=== PATIENT | female | born 1945 | race Caucasian/White ===

== ENCOUNTER 2019-04-04 14:29 | Emergency (ER) | payer MEDICARE, BC ==
[~2019-04-04] VITALS: Ht 152.4 cm; Wt 86.4 kg
[~2019-04-04 14:29] MED LIST: ACET-1008 PO; ASPI-611 PO; AZIL40TA PO; CHOL200059 PO; CLOP75TA15 PO; GLUC-221 PO; GLYB1TAB39 PO; GLYB2.5T4 PO; LEVO150T PO; MAGN400C PO; METF500T PO; METO25TA6 PO; MULT1TAB74 PO; OMEG1CAP13 PO; PANT-47 PO; POTA99TA25 PO; PSYL0.5210 PO; VITC500T PO
[2019-04-04 15:48] LABS: BASOPHILS # (AUTO) 0.1 X10'3 (0-0.2); BASOPHILS % (AUTO) 0.8 % (0-1); EOSINOPHILS # (AUTO) 0.3 X10'3 (0-0.9); EOSINOPHILS % (AUTO) 2.4 % (0-6); HEMATOCRIT 44.4 % (35.0-45.0); HEMOGLOBIN 15.2 g/dl (12.0-16.0); LYMPHOCYTES # (AUTO) 2.1 X10'3 (1.1-4.8); LYMPHOCYTES % (AUTO) 19.9 % (21-51); MEAN CORPUSCULAR HGB CONC 34.2 g/dL (33.0-36.5); MEAN CORPUSCULAR VOLUME 93.7 FL (78-98); MEAN PLATELET VOLUME 6.7 FL (7.4-10.4); MONOCYTES # (AUTO) 0.9 X10'3 (0-0.9); MONOCYTES % (AUTO) 8.5 % (2-12); NEUTROPHILS # (AUTO) 7.2 X10'3 (1.8-7.7); NEUTROPHILS % (AUTO) 68.4 % (42-75); PLATELET COUNT 318 X10'3 (140-440); RED BLOOD COUNT 4.74 X10'6 (4.20-5.60); RED CELL DISTRIBUTION WIDTH 13.3 % (11.5-14.5); WHITE BLOOD COUNT 10.5 X10'3 (4.5-11.0)
[2019-04-04 16:02] LABS: ALANINE AMINOTRANSFERASE 29 U/L (12-78); ALBUMIN 3.8 G/DL (3.4-5.0); ALKALINE PHOSPHATASE 93 IU/L (46-116); ANION GAP 10 (8-16); ASPARTATE AMINO TRANSFERASE 20 U/L (10-37); BILIRUBIN,TOTAL 0.3 MG/DL (0.1-1.0); BLOOD UREA NITROGEN 16 MG/DL (7-18); BUN/CREATININE RATIO 10.4 (6.6-38.0); CALCIUM 9.5 MG/DL (8.5-10.1); CHLORIDE 103 MMOL/L (99-107); CREATININE 1.54 MG/DL (0.40-0.90); GLUCOSE 189 MG/DL (70-104); POTASSIUM 4.1 MMOL/L (3.5-5.1); SODIUM 140 MMOL/L (135-145); TOTAL PROTEIN 7.6 G/DL (6.4-8.2); eGFR 33 ML/MIN
[2019-04-04 18:34] VITALS: BP 143/71
== END 2019-04-04 19:24 | disposition home or self-care (01) ==
LOC: ER 14:30
DX: I10 Essential (primary) hypertension (principal); I25.10 Atherosclerotic heart disease of native coronary artery without angina pectoris; K21.9 Gastro-esophageal reflux disease without esophagitis; E11.9 Type 2 diabetes mellitus without complications; Z98.61 Coronary angioplasty status; Z98.890 Other specified postprocedural states; Z88.0 Allergy status to penicillin; Z88.8 Allergy status to other drugs, medicaments and biological substances; Z79.82 Long term (current) use of aspirin; Z79.84 Long term (current) use of oral hypoglycemic drugs; Z79.899 Other long term (current) drug therapy
CPT/HCPCS: 36415; 71045; 80053; 84484; 85025; 93005; 99284

== ENCOUNTER 2019-10-07 12:09 | Day surgery (SDC) | payer MEDICARE, BC ==
[~2019-10-07] VITALS: Ht 152.4 cm; Wt 92.8 kg
[2019-10-07] VITALS (8 sets, daily range): BP systolic 150–175; BP diastolic 88–100
[~2019-10-07 12:09] MED LIST changes: +MULT-620 PO; -MULT1TAB74 PO
[2019-10-07] MEDS ORDERED: diphenhydrAMINE 25mg capsule PO PRN (12:35)
[2019-10-07] MEDS ORDERED: normal saline 1,000 ML IV SCH (12:35)
[2019-10-07] MEDS ORDERED: FURO-150 PO (13:04)
[2019-10-07] MEDS ORDERED: POTA10TA19 PO (13:04)
[2019-10-07] MEDS ORDERED: GLYB2.5T4 PO (13:04)
[2019-10-07] MEDS ORDERED: VALS160T30 PO (13:04)
[2019-10-07] MEDS ORDERED: GABA-530 PO (13:04)
[2019-10-07] MEDS ORDERED: NEBI10TA2 PO (13:04)
[2019-10-07] MEDS ORDERED: GLIM4TAB7 PO (13:04)
[2019-10-07] MEDS ORDERED: GLYB1TAB39 PO (13:13)
[2019-10-07 13:20] LABS: BASOPHILS # (AUTO) 0.1 X10'3 (0-0.2); BASOPHILS % (AUTO) 1.1 % (0-1); EOSINOPHILS # (AUTO) 0.3 X10'3 (0-0.9); EOSINOPHILS % (AUTO) 3.2 % (0-6); HEMATOCRIT 42.7 % (35.0-45.0); HEMOGLOBIN 14.6 g/dl (12.0-16.0); LYMPHOCYTES # (AUTO) 1.6 X10'3 (1.1-4.8); LYMPHOCYTES % (AUTO) 20.6 % (21-51); MEAN CORPUSCULAR HEMOGLOBIN 32.4 PG (27.0-31.0); MEAN CORPUSCULAR HGB CONC 34.1 g/dL (33.0-36.5); MEAN CORPUSCULAR VOLUME 94.8 FL (78-98); MEAN PLATELET VOLUME 7.3 FL (7.4-10.4); MONOCYTES # (AUTO) 0.7 X10'3 (0-0.9); MONOCYTES % (AUTO) 8.4 % (2-12); NEUTROPHILS # (AUTO) 5.3 X10'3 (1.8-7.7); NEUTROPHILS % (AUTO) 66.7 % (42-75); PLATELET COUNT 253 X10'3 (140-440)
[2019-10-07 13:25] LABS: ALBUMIN 3.3 G/DL (3.4-5.0); ANION GAP 12 (8-16); BLOOD UREA NITROGEN 17 MG/DL (7-18); BUN/CREATININE RATIO 11.3 (6.6-38.0); CHLORIDE 102 MMOL/L (99-107); CREATININE 1.51 MG/DL (0.40-0.90); GLUCOSE 231 MG/DL (70-104); MAGNESIUM 1.7 MG/DL (1.5-2.4); POTASSIUM 4.4 MMOL/L (3.5-5.1); SODIUM 139 MMOL/L (135-145); eGFR 34 ML/MIN
[2019-10-07] MEDS ORDERED: diphenhydrAMINE 25mg capsule PO ONE (13:44)
[2019-10-07] MEDS ORDERED: sodium bicarbonate (8.4%) inj. 150 ML in dextrose 5%-water 1,000 ML IV ONE (13:45)
[2019-10-07] MEDS ORDERED: LIDOcaine 1% (10mg/ml)w/preservative injection 20ml MDV ONE (14:45)
[2019-10-07] MEDS ORDERED: iohexol 350 MG/ML 50ML vial IV ONE (14:46)
[2019-10-07] MEDS ORDERED: iohexol 350MG/ML 100ml bottle IV ONE ×3 (14:46→16:25)
[2019-10-07] MEDS ORDERED: heparin 1,000unit/ml 10ml vial 10 ML ONE ×2 (14:46→16:25)
[2019-10-07] MEDS ORDERED: midazolam 2 mg/2 ml injection ONE ×3 (15:12→16:05)
[2019-10-07] MEDS ORDERED: fentaNYL/PF 50MCG/1 ML 2ML syringe ONE ×2 (15:13→16:27)
[2019-10-07] MEDS ORDERED: clopidogrel 300mg tablet ONE (15:48)
[2019-10-07] MEDS ORDERED: nitroGLYCERIN-Tridil 50MG/D5W 250 ML IV ONE (16:06)
[2019-10-07] MEDS ORDERED: proCHLORperazine 10 MG/2 ml inj ONE (16:14)
--- NOTE | 2019-10-07 17:33 | NUR ---
Pt complaining of "burning throat" & requesting Pepcid. Dr. Kwon telephoned, order received.
[2019-10-07] MEDS ORDERED: normal saline 1000ml 1,000 ML IV SCH (17:35)
[2019-10-07] MEDS ORDERED: OXAZEpam 15mg capsule PO PRN (17:35)
[2019-10-07] MEDS ORDERED: famotidine 10mg tablet PO ONE (17:35)
[2019-10-07] MEDS ORDERED: HYDROcodone/acetaminophen 5mg/325mg tablet PO PRN (17:35)
[2019-10-07] MEDS ORDERED: HYDROcodone/acetaminophen 10/325mg tab PO PRN (17:35)
== END 2019-10-07 20:10 | disposition home or self-care (01) ==
LOC: SSTAY O 12:09
PROVIDERS: ATTEND Internal Medicine Cardiovascular Disease
DX: R06.09 Other forms of dyspnea (principal); R07.89 Other chest pain; I25.118 Atherosclerotic heart disease of native coronary artery with other forms of angina pectoris; I10 Essential (primary) hypertension; E78.5 Hyperlipidemia, unspecified; E03.9 Hypothyroidism, unspecified; E11.42 Type 2 diabetes mellitus with diabetic polyneuropathy; G62.0 Drug-induced polyneuropathy; Z85.3 Personal history of malignant neoplasm of breast; Z85.42 Personal history of malignant neoplasm of other parts of uterus; Z95.5 Presence of coronary angioplasty implant and graft; Z90.710 Acquired absence of both cervix and uterus; Z98.890 Other specified postprocedural states; Z96.659 Presence of unspecified artificial knee joint; Z87.891 Personal history of nicotine dependence; Z88.8 Allergy status to other drugs, medicaments and biological substances; Z91.013 Allergy to seafood; Z82.49 Family history of ischemic heart disease and other diseases of the circulatory system; Z80.1 Family history of malignant neoplasm of trachea, bronchus and lung
CPT/HCPCS: 36415; 80048; 82948; 83735; 85025; 85610; 93005; 93458; 99152; 99153; C1725; C1751; C1760; C1769; C1874; C1894; C9600; J0780; J1644; J2001; J2250; J3010; Q0163; Q9967; A4620; A6258; J3490

== ENCOUNTER 2021-12-02 12:15 | Outpatient (CLI) | payer MEDICARE, BC ==
[~2021-12-02 12:15] MED LIST changes: -ACET-1008 PO; +ALLO100T PO; +AMLO5TAB16 PO; -ASPI-611 PO; +ASPI81TA53 PO; +ATOR40TA72 PO; -AZIL40TA PO; -CHOL200059 PO; -CLOP75TA15 PO; +FURO-150 PO; +GABA300C PO; -GLUC-221 PO; -GLYB1TAB39 PO; -GLYB2.5T4 PO; +INSU100I25 SQ; +INSU100I8 SQ; +LEVO125T PO; -LEVO150T PO; +LOP12.5T PO; -MAGN400C PO; -METF500T PO; -METO25TA6 PO; -MULT-620 PO; -OMEG1CAP13 PO; -POTA99TA25 PO; -PSYL0.5210 PO; +VALS160T30 PO; -VITC500T PO
== END 2021-12-02 23:59 | disposition home or self-care (01) ==
LOC: RAD 12:15
PROVIDERS: ATTEND Thoracic Surgery (Cardiothoracic Vascular Surgery)
DX: J18.9 Pneumonia, unspecified organism (principal); R09.3 Abnormal sputum; M40.294 Other kyphosis, thoracic region; Z95.1 Presence of aortocoronary bypass graft
CPT/HCPCS: 71046

== ENCOUNTER 2021-12-05 17:39 | Emergency (ER) | payer MEDICARE, BC ==
[~2021-12-05] VITALS: Ht 152.4 cm; Wt 92.7 kg
[2021-12-05 17:51] VITALS: BP 118/69
[2021-12-05 18:22] LABS: BASOPHILS # (AUTO) 0.1 X10'3 (0-0.2); EOSINOPHILS # (AUTO) 0.7 X10'3 (0-0.9); EOSINOPHILS % (AUTO) 7.7 % (0-6); HEMATOCRIT 36.6 % (35.0-45.0); HEMOGLOBIN 12.1 g/dl (12.0-16.0); LYMPHOCYTES # (AUTO) 2.1 X10'3 (1.1-4.8); MEAN CORPUSCULAR HEMOGLOBIN 32.2 PG (27.0-31.0); MEAN CORPUSCULAR HGB CONC 33.2 g/dL (33.0-36.5); MEAN CORPUSCULAR VOLUME 97.1 FL (78-98); MONOCYTES # (AUTO) 0.8 X10'3 (0-0.9); MONOCYTES % (AUTO) 8.8 % (2-12); NEUTROPHILS # (AUTO) 4.9 X10'3 (1.8-7.7); NEUTROPHILS % (AUTO) 57.5 % (42-75); PLATELET COUNT 367 X10'3 (140-440); RED BLOOD COUNT 3.77 X10'6 (4.20-5.60); RED CELL DISTRIBUTION WIDTH 15.3 % (11.5-14.5); WHITE BLOOD COUNT 8.6 X10'3 (4.5-11.0)
[2021-12-05 18:41] LABS: ALANINE AMINOTRANSFERASE 15 U/L (12-78); ALBUMIN 3.5 G/DL (3.4-5.0); ALBUMIN/GLOBULIN RATIO 0.9 (1.1-1.5); ALKALINE PHOSPHATASE 161 IU/L (46-116); ANION GAP 16 (8-16); ASPARTATE AMINO TRANSFERASE 18 U/L (10-37); BILIRUBIN,TOTAL 0.3 MG/DL (0.1-1.0); BLOOD UREA NITROGEN 15 MG/DL (7-18); BUN/CREATININE RATIO 7.6 (6.6-38.0); CALCIUM 9.6 MG/DL (8.5-10.1); CHLORIDE 103 MMOL/L (99-107); CREATININE 1.97 MG/DL (0.40-0.90); GLUCOSE 89 MG/DL (70-104); POTASSIUM 4.7 MMOL/L (3.5-5.1); SODIUM 144 MMOL/L (135-145); TOTAL CARBON DIOXIDE 25.5 MMOL/L (24-32); TOTAL PROTEIN 7.2 G/DL (6.4-8.2); eGFR 25 ML/MIN
[2021-12-05 20:36] LABS: GLUCOSE 77 MG/DL (70-104)
--- NOTE | 2021-12-05 20:58 | NUR ---
food tray provided
== END 2021-12-05 21:16 | disposition home or self-care (01) ==
LOC: ER 17:40
DX: R00.0 Tachycardia, unspecified (principal); R06.02 Shortness of breath; I25.10 Atherosclerotic heart disease of native coronary artery without angina pectoris; I10 Essential (primary) hypertension; K21.9 Gastro-esophageal reflux disease without esophagitis; E11.9 Type 2 diabetes mellitus without complications; Z98.890 Other specified postprocedural states; Z88.0 Allergy status to penicillin; Z88.8 Allergy status to other drugs, medicaments and biological substances; Z91.013 Allergy to seafood; Z79.82 Long term (current) use of aspirin; Z79.4 Long term (current) use of insulin; Z79.899 Other long term (current) drug therapy
CPT/HCPCS: 36415; 71046; 80053; 82947; 83735; 83880; 84484; 85025; 93005; 99285

== ENCOUNTER 2022-04-01 07:16 | Day surgery (SDC) | payer MEDICARE, BC ==
[2022-04-01] VITALS (9 sets, daily range): BP systolic 98–132; BP diastolic 49–108
[~2022-04-01] VITALS: Ht 152.4 cm; Wt 89.9 kg
[2022-04-01] MEDS ORDERED: vancomycin 1,500 MG in NS 300ml IV soln IV ONE (07:43)
[2022-04-01] MEDS ORDERED: clindamycin-Cleocin 900mg/D5W 50 ML IV ONE (07:43)
[2022-04-01] MEDS ORDERED: normal saline 1000ml 1,000 ML IV SCH ×2 (07:43→12:59)
[2022-04-01] MEDS ORDERED: MAGN200T PO (08:14)
[2022-04-01] MEDS ORDERED: ASPI81TA52 PO (08:14)
[2022-04-01] MEDS ORDERED: VITAMIN D3 PO (08:14)
[2022-04-01] MEDS ORDERED: SULF1TAB45 PO (08:20)
[2022-04-01 08:57] LABS: BASOPHILS # (AUTO) 0.1 X10'3 (0-0.2); BASOPHILS % (AUTO) 0.9 % (0-1); EOSINOPHILS # (AUTO) 0.2 X10'3 (0-0.9); EOSINOPHILS % (AUTO) 2.4 % (0-6); HEMATOCRIT 37.7 % (35.0-45.0); HEMOGLOBIN 12.6 g/dl (12.0-16.0); LYMPHOCYTES # (AUTO) 1.2 X10'3 (1.1-4.8); LYMPHOCYTES % (AUTO) 16.5 % (21-51); MEAN CORPUSCULAR HEMOGLOBIN 31.2 PG (27.0-31.0); MEAN CORPUSCULAR HGB CONC 33.4 g/dL (33.0-36.5); MEAN CORPUSCULAR VOLUME 93.1 FL (78-98); MEAN PLATELET VOLUME 6.5 FL (7.4-10.4); MONOCYTES # (AUTO) 0.5 X10'3 (0-0.9); MONOCYTES % (AUTO) 7.2 % (2-12); NEUTROPHILS # (AUTO) 5.1 X10'3 (1.8-7.7); PLATELET COUNT 257 X10'3 (140-440); RED BLOOD COUNT 4.05 X10'6 (4.20-5.60); RED CELL DISTRIBUTION WIDTH 17.1 % (11.5-14.5)
[2022-04-01 09:19] LABS: ALBUMIN 3.4 G/DL (3.4-5.0); ANION GAP 10 (8-16); BLOOD UREA NITROGEN 19 MG/DL (7-18); BUN/CREATININE RATIO 9.9 (6.6-38.0); CALCIUM 9.3 MG/DL (8.5-10.1); CHLORIDE 103 MMOL/L (99-107); CREATININE 1.92 MG/DL (0.40-0.90); GLUCOSE 100 MG/DL (70-104); MAGNESIUM 2.1 MG/DL (1.5-2.4); POTASSIUM 4.4 MMOL/L (3.5-5.1); SODIUM 137 MMOL/L (135-145); TOTAL CARBON DIOXIDE 24.2 MMOL/L (24-32); eGFR 25 ML/MIN
[2022-04-01] MEDS ORDERED: fentaNYL/PF 50MCG/1 ML 2ML syringe ONE (10:27)
[2022-04-01] MEDS ORDERED: midazolam 1 mg/ML 2ml injection ONE (10:27)
[2022-04-01] MEDS ORDERED: ceFAZolin 1000mg inj ONE (10:27)
[2022-04-01] MEDS ORDERED: LIDOCAINE 2%/EPI 1:100,000 inj. Multi-dose 20 ML VIAL ONE ×2 (10:29→11:51)
[2022-04-01] MEDS ORDERED: vancomycin 1,000mg inj ONE (10:34)
[2022-04-01] MEDS ORDERED: diphenhydrAMINE 50 mg/ml inj ONE (11:24)
[2022-04-01] MEDS ORDERED: iohexol 350 MG/ML 50ML vial IV ONE (11:40)
[2022-04-01] MEDS ORDERED: metoprolol tartrate 1mg/ml inj IV ONE (12:16)
[2022-04-01] MEDS ORDERED: normal saline 1000ml 400 ML IV SCH (13:00)
== END 2022-04-01 15:20 | disposition home or self-care (01) ==
LOC: SSTAY O 07:16
PROVIDERS: ATTEND Internal Medicine Cardiovascular Disease
DX: I49.5 Sick sinus syndrome (principal); I44.2 Atrioventricular block, complete; I47.1 Supraventricular tachycardia; I25.118 Atherosclerotic heart disease of native coronary artery with other forms of angina pectoris; I10 Essential (primary) hypertension; E78.5 Hyperlipidemia, unspecified; E11.42 Type 2 diabetes mellitus with diabetic polyneuropathy; E03.9 Hypothyroidism, unspecified; E11.22 Type 2 diabetes mellitus with diabetic chronic kidney disease; N18.9 Chronic kidney disease, unspecified; Z85.3 Personal history of malignant neoplasm of breast; Z98.890 Other specified postprocedural states; Z95.5 Presence of coronary angioplasty implant and graft; Z90.710 Acquired absence of both cervix and uterus; Z79.4 Long term (current) use of insulin; Z79.82 Long term (current) use of aspirin; Z79.899 Other long term (current) drug therapy; Z96.659 Presence of unspecified artificial knee joint; Z87.891 Personal history of nicotine dependence; Z88.8 Allergy status to other drugs, medicaments and biological substances; Z91.013 Allergy to seafood; Z80.1 Family history of malignant neoplasm of trachea, bronchus and lung; Z82.49 Family history of ischemic heart disease and other diseases of the circulatory system
CPT/HCPCS: 33208; 36415; 71045; 80048; 82948; 83735; 85025; 85610; 93005; 99152; 99153; C1785; C1894; C1898; J1200; J2250; J3010; J3370; J3490; J7030; J7040; Q9967; A6258; J0690

== ENCOUNTER 2022-10-31 05:09 | Day surgery (SDC) | payer MEDICARE, BC ==
[2022-10-25 11:34] LABS: BASOPHILS # (AUTO) 0.1 X10'3 (0-0.2); BASOPHILS % (AUTO) 0.9 % (0-1); EOSINOPHILS # (AUTO) 0.3 X10'3 (0-0.9); EOSINOPHILS % (AUTO) 4.2 % (0-6); LYMPHOCYTES % (AUTO) 16.4 % (21-51); MEAN CORPUSCULAR HEMOGLOBIN 31.7 PG (27.0-31.0); MEAN CORPUSCULAR HGB CONC 32.9 g/dL (33.0-36.5); MEAN CORPUSCULAR VOLUME 96.3 FL (78-98); MEAN PLATELET VOLUME 6.7 FL (7.4-10.4); MONOCYTES # (AUTO) 0.5 X10'3 (0-0.9); MONOCYTES % (AUTO) 8.2 % (2-12); NEUTROPHILS # (AUTO) 4.4 X10'3 (1.8-7.7); NEUTROPHILS % (AUTO) 70.3 % (42-75); PRE OP HEMATOCRIT 41.2 % (35.0-45.0); PRE OP HEMOGLOBIN 13.6 g/dL (12.0-16.0); PRE OP PLATELET COUNT 217 X10'3 (140-440); PRE OP WHITE BLOOD COUNT 6.2 10'3 (4.8-10.8); RED BLOOD COUNT 4.28 X10'6 (4.20-5.60); RED CELL DISTRIBUTION WIDTH 14.6 % (11.5-14.5)
[2022-10-25 11:43] LABS: ALBUMIN 3.1 G/DL (3.4-5.0); ALBUMIN/GLOBULIN RATIO 0.9 (1.1-1.5); ALKALINE PHOSPHATASE 110 IU/L (46-116); BLOOD UREA NITROGEN 20 MG/DL (7-18); BUN/CREATININE RATIO 14.1 (10.0-20.0); CALCIUM 9.4 MG/DL (8.5-10.1); CHLORIDE 105 MMOL/L (99-107); CREATININE 1.42 MG/DL (0.40-0.90); PRE OP ALT 19 U/L (30-65); PRE OP ANION GAP 13 (8-16); PRE OP AST 20 U/L (10-37); PRE OP BILIRUB, TOTAL 0.4 MG/DL (0.0-1.0); PRE OP POTASSIUM 4.2 MMOL/L (3.4-5.1); PRE OP SODIUM 142 MMOL/L (135-145); TOTAL CARBON DIOXIDE 24.5 MMOL/L (24-32); TOTAL PROTEIN 6.6 G/DL (6.4-8.2); eGFR 36 ML/MIN
[2022-10-25 11:48] LABS: PRE OP GLUCOSE 228 MG/DL (70-104)
[2022-10-25 11:59] LABS: PRE OP PROTIME 11.2 SECONDS (9.0-12.0)
[2022-10-31] VITALS (27 sets, daily range): BP systolic 119–145; BP diastolic 55–83; PULSE 73–90; RESP 9–18; TEMP 97.8; O2SAT 92–98
[~2022-10-31] VITALS: Ht 152.4 cm; Wt 81.2 kg
[~2022-10-31 05:09] MED LIST changes: -AMLO5TAB16 PO; -ASPI81TA53 PO; -INSU100I25 SQ; +INSU100I27 SQ; -LOP12.5T PO; +MAGN200T PO; +VITAMIN D3 PO; +ringers solution, lacted 1,000 ML IV SCH
[2022-10-31] MEDS ORDERED: levoFLOXACIN-Levaquin 500mg/D5 100 ML IV ONE (05:30)
[2022-10-31] MEDS ORDERED: famotidine 20mg tablet PO ONE (05:30)
[2022-10-31] MEDS ORDERED: METO25TA6 PO (06:14)
[2022-10-31] MEDS ORDERED: BUPIVAcaine/PF 2.5 mg/ml (0.25%) 30ml vial ONE (06:58)
[2022-10-31] MEDS ORDERED: midazolam 1 mg/ML 2ml injection ONE (07:13)
[2022-10-31] MEDS ORDERED: fentaNYL/PF 50MCG/1 ML 2ML syringe ONE (07:13)
[2022-10-31] MEDS ORDERED: acetaminophen 1,000mg/100ml IV 100 ML IV ONE (07:14)
[2022-10-31] MEDS ORDERED: LIDOcaine 2% (20mg/ml) 5ml vial ONE (07:14)
[2022-10-31] MEDS ORDERED: dexamethasone sod phosphate 4mg/ml inj. ONE (07:14)
[2022-10-31] MEDS ORDERED: propofol inj 20 ML IV ONE (07:14)
[2022-10-31] MEDS ORDERED: ondansetron/PF 4mg/2ml inj ONE (07:14)
[2022-10-31] MEDS ORDERED: morphine 4 MG/ML inj SYRINge IV PRN (07:20)
[2022-10-31] MEDS ORDERED: enalaprilat dihydrate 2.5mg/2ml vial IV PRN (07:20)
[2022-10-31] MEDS ORDERED: HYDROmorphone/PF 0.2 MG/ML SYRINGE IV PRN ×2 (07:20)
[2022-10-31] MEDS ORDERED: morphine 2 MG/ML inj. syringe IV PRN (07:20)
[2022-10-31] MEDS ORDERED: ondansetron/PF 4mg/2ml inj IV PRN (07:20)
[2022-10-31] MEDS ORDERED: hydrALAZINE 20mg/ml inj. IV PRN (07:20)
[2022-10-31] MEDS ORDERED: ringers solution, lacted 1,000 ML IV SCH (07:20)
[2022-10-31] MEDS ORDERED: desflurane 240ml liquid inh. IH ONE (07:35)
--- NOTE | 2022-10-31 09:13 | NUR ---
Received from OR via [facility] IN STABLE CONDTION , accompanied by Anesthesiologist and PEDIATRIC DENTAL ASSISTANT report given by PEDIATRIC DENTAL ASSISTANT AND Anesthesiolgist. Addendum: 10/31/22 at 0980 by Barbra Norris RN Amended: Links added.
[2022-10-31] MEDS ORDERED: oxyCODONE/APAP 10/325mg tablet PO STA ×2 (09:56→12:48)
--- NOTE | 2022-10-31 13:50 | NUR ---
PER DR. JEROME POLO TO GIVE CLEMET EARLY. Addendum: 10/31/22 at 1350 by Barbra Norris RN Amended: Links added.
--- NOTE | 2022-10-31 14:10 | NUR ---
PATIENT DISCHARGED FROM PACU IN STABLE CONDITION AFTER WRITTEN VERBAL DISCHARGE INSTRUCTIONS GIVEN. PATIENT LEFT FACILITY VIA WHEELCHAIR WITH RN. Addendum: 10/31/22 at 1414 by Barbra Norris RN Amended: Links added.
== END 2022-10-31 13:53 | disposition home or self-care (01) ==
LOC: PAS 05:09
PROVIDERS: ATTEND Surgery
DX: C50.211 Malignant neoplasm of upper-inner quadrant of right female breast (principal); C50.111 Malignant neoplasm of central portion of right female breast; E03.9 Hypothyroidism, unspecified; J43.9 Emphysema, unspecified; I25.10 Atherosclerotic heart disease of native coronary artery without angina pectoris; E11.22 Type 2 diabetes mellitus with diabetic chronic kidney disease; I12.9 Hypertensive chronic kidney disease with stage 1 through stage 4 chronic kidney disease, or unspecified chronic kidney disease; N18.30 Chronic kidney disease, stage 3 unspecified; E66.9 Obesity, unspecified; Z68.35 Body mass index [BMI] 35.0-35.9, adult; Z79.82 Long term (current) use of aspirin; Z79.899 Other long term (current) drug therapy; Z79.4 Long term (current) use of insulin; Z87.01 Personal history of pneumonia (recurrent); Z95.1 Presence of aortocoronary bypass graft; Z98.890 Other specified postprocedural states; Z90.710 Acquired absence of both cervix and uterus; Z96.652 Presence of left artificial knee joint; Z96.641 Presence of right artificial hip joint; Z85.3 Personal history of malignant neoplasm of breast; Z85.42 Personal history of malignant neoplasm of other parts of uterus; Z95.0 Presence of cardiac pacemaker; Z91.013 Allergy to seafood; Z88.0 Allergy status to penicillin; Z88.8 Allergy status to other drugs, medicaments and biological substances
CPT/HCPCS: 19303; 36415; 80053; 82948; 85025; 85610; 85730; J0131; J1100; J1956; J2250; J2270; J2405; J2704; J3010; J3490; J7030; J7120; Z7506; Z7508; Z7512; A4215; A4615; A4618; A6253; A6449; A7000